=== PATIENT | female | born 1930 | race Caucasian/White ===

== ENCOUNTER 2020-09-23 10:49 | Emergency (ER) | payer MEDICARE ==
[~2020-09-23] VITALS: Ht 162.6 cm; Wt 54.5 kg
[2020-09-23 11:05] VITALS: BP 126/75
--- NOTE | 2020-09-23 11:44 | RAD ---
XR SHOULDER_LEFT 2+ VIEWS, XR CHEST 1V Clinical indications: Reason: Left-sided chest pain over implant and left shoulder pain. PORTABLE AP CHEST X-RAY COMPARISON: None available. Findings: Old granulomatous disease is seen. No acute lung infiltrate or pleural effusion or pulmonar y edema or lung mass or pneumothorax is seen. The heart size, pulmonary vasculature, mediastinum and both trae are unremarkable. IMPRESSION: No acute radiographic abnormality is seen. THREE-VIEW LEFT SHOULDER STUDY: No acute fracture or dislocation or lytic process is seen. Old healed inferior left lateral rib cage fractures are seen. There is mild DJD of the left AC joint. The left glenohumeral joint is unremarkable. There is spurring of the inferior edge of the acromial process wh ich may impinge the acromial humeral space resulting in rotator cuff disease. There are mild chronic erosive changes of the lateral aspect of the humeral head secondary to chronic acromial humeral space impingement. IMPRESSION: No acute fracture. Acromial humeral space impingement which may result in rotator cuff disease. Electronically signed by: Eduar Chan MD (09/23/2020 11:42 AM) [id number]
--- NOTE | 2020-09-23 11:49 | PHYS DOC ---
Past History Past Medical History: Cancer, CVA, Hypertension, Hypothyroid, Other Additional Past Medical Histor: PARKINSONS Past Surgical History: Other Additional Past Surgical Histo: MASCECTOMY LEFT Alcohol Use: None General Adult EDM: Chief Complaint: UPPER EXTREMITY SWELLING HPI: HPI: 89-year-old female past medical history significant for stroke with left-sided weakness and breast cancer status post L mastectomy and augmentation proximately 30 years ago in [place], here visiting family, presents to the ED with complaints of painful/swollen left upper chest, "I think my breast implant ruptured," approximately 2 days ago with associated bruising and left upper chest pain. Is on Eliquis due to her stroke. History of blood transfusions in the past related to her breast cancer. No known exposure to covid. No h/o liver disease, low platelets or bleeding disorders. Denies any falls or hitting her head, cannot recall any trauma or event that would cause bleeding. Review of Systems: Review of Systems: Constitutional: Denies fever or chills Eyes: Denies change in visual acuity HENT: Denies nasal congestion or sore throat Respiratory: Denies cough or shortness of breath Cardiovascular: Denies chest pain or edema GI: Denies abdominal pain, nausea, vomiting, bloody stools or diarrhea : Denies dysuria or hematuria Musculoskeletal: Denies back pain or joint pain Integument: Denies crepitus or diaphoresis Neurologic: Denies headache, midline neck pain, focal weakness or sensory changes Endocrine: Denies polyuria or polydipsia Lymphatic: Denies swollen glands Psychiatric: Denies depression or anxiety Allergies: Allergies: Allergies Coded Allergies Type Severity Reaction Last Updated Verified codeine Allergy Unknown 09/23/20 Yes Physical Exam: PE: Constitutional: Well developed, well nourished, no acute distress, non-toxic appearance. HENT: Normocephalic, atraumatic, Eyes: EOMI, conjunctiva normal, Neck: Normal range of motion, supple, Cardiovascular: S1/2 present, regular rhythm, left surgical scar with underlying implant palpated/soft-superior to implant with with large area 10x8 cm of ecchymosis and firm ttp swelling, ecchymosis extends down patient's posterior left arm w/a yellow appearance, no arm swelling, equal radial pulses, no LUE deficits Lungs & Thorax: Speaking in full sentences, bilateral equal chest rise, no tachypnea or increased work of breathing Abdomen: soft, no tenderness, Skin: Warm, dry, no erythema, no rash. [] Back: No tenderness, no CVA tenderness. [] Extremities: No tenderness, no cyanosis, no edema Neurologic: Alert and oriented X 3, normal motor function, normal sensory function, no focal deficits noted. [] Psychologic: Affect normal, judgement normal, mood normal. [] Nexus C-spine criteria are negative: There is no post midline tenderness, the patient is not intoxicated, there is a normal level of alertness, there are no focal neurologic deficits and there are no distracting injuries. Current Patient Data: Vital Signs: Vital Signs Date Time Temp Pulse Resp B/P (MAP) Pulse Ox O2 Delivery O2 Flow Rate FiO2 09/23/20 11:05 98.2 102 20 126/75 (92) 97 Room Air EKG: EKG: [] Radiology/Procedures: Radiology/Procedures: IMAGING REPORT Signed PATIENT: ERIK MONTENEGRO ACCOUNT: [id number] : 1930 LOCATION: ER AGE: 89 SEX: F EXAM STATUS: REG ER ORD. PHYSICIAN: PREMA CANDELARIO DO REASON: pain over implant? PROCEDURE: SHOULDER 2+V LEFT XR SHOULDER_LEFT 2+ VIEWS, XR CHEST 1V Clinical indications: Reason: Left-sided chest pain over implant and left shoulder pain. PORTABLE AP CHEST X-RAY COMPARISON: None available. Findings: Old granulomatous disease is seen. No acute lung infiltrate or pleural effusion or pulmonary edema or lung mass or pneumothorax is seen. The heart size, pulmonary vasculature, mediastinum and both trae are unremarkable. IMPRESSION: No acute radiographic abnormality is seen. THREE-VIEW LEFT SHOULDER STUDY: No acute fracture or dislocation or lytic process is seen. Old healed inferior left lateral rib cage fractures are seen. There is mild DJD of the left AC joint. The left glenohumeral joint is unremarkable. There is spurring of the inferior edge of the acromial process which may impinge the acromial humeral space resulting in rotator cuff disease. There are mild chronic erosive changes of the lateral aspect of the humeral head secondary to chronic acromial humeral space impingement. IMPRESSION: No acute fracture. Acromial humeral space impingement which may result in rotator cuff disease. Electronically signed by: Sonya Chan MD (09/23/2020 11:42 AM) [id number] DICTATED AND SIGNED BY: SONYA CHAN MD DATE: 09/23/20 1137 CC: NON,STAFF; PREMA CANDELARIO DO ~MTH0 0 IMAGING REPORT Signed PATIENT: ERIK MONTENEGRO ACCOUNT: [id number] : 1930 LOCATION: ER AGE: 89 SEX: F EXAM STATUS: REG ER ORD. PHYSICIAN: PREMA CANDELARIO DO REASON: chest wall hematoma, FALL PROCEDURE: CT HEAD AND CERVICAL SPINE WO CT scan of the head without contrast 09/23/2020 Clinical History: Fall with head injury. Technique: Unenhanced, contiguous, 5 mm axial sections were obtained through the head. One or more of the following individualized dose reduction techniques were utilized for this study: 1. Automated exposure control. 2. Adjustment of the mA and/or kV according to patient size. 3. Use of iterative reconstruction technique. Findings: There is generalized parenchymal atrophy. Areas of decreased attenuation are seen within the periventricular and subcortical white matter of both cerebral hemispheres consistent with areas of small vessel ischemic disease. No acute parenchymal abnormality is seen. No extra-axial fluid collection is noted. No skull fracture is seen. Impression: No acute intracranial abnormality is seen. CT scan of the cervical spine without contrast 09/23/2019 Clinical history: Fall. Neck injury. Technique: Unenhanced, contiguous, 0.625 mm axial sections were obtained through the cervical spine. Axial, coronal and sagittal reconstructed images were obtained. One or more of the following individualized dose reduction techniques were util ized for this study: 1. Automated exposure control. 2. Adjustment of the mA and/or kV according to patient size. 3. Use of iterative reconstruction technique. Findings: Sagittal and coronal reconstructed images demonstrate mild lateral curvature of the cervical spine, convex to the right. Degenerative changes consisting of disc space narrowing, vertebral endplate sclerosis and minimal to mild anterior and posterior vertebral body osteophyte formation are seen involving the C6-7 disc space. No fracture or subluxation of the cervical vertebrae is seen. Degenerative changes are seen involving the uncovertebral and facet joints throughout the cervical disc spaces. Impression: No fracture or subluxation of the cervical vertebra is identified. Electronically signed by: Navin Mchugh MD (09/23/2020 1:38 PM) [id number] DICTATED AND SIGNED BY: NAVIN MCHUGH MD DATE: 09/23/20 132 CC: NON,STAFF; PREMA CANDELARIO DO ~MTH0 0 IMAGING REPORT Signed PATIENT: ERIK MONTENEGRO ACCOUNT: [id number] : 1930 LOCATION: ER AGE: 89 SEX: F EXAM STATUS: REG ER ORD. PHYSICIAN: PREMA CANDELARIO DO REASON: ruptured breast implant?, BRUISING AND HARDNESS PROCEDURE: CT CHEST WO CONTRAST CT scan of the chest without contrast 09/23/2020 CLINICAL HISTORY: Bruising and hardness around the patient's left breast implant. TECHNIQUE: Unenhanced, contiguous, 3 mm axial sections were obtained through the chest and upper abdomen. One or more of the following individualized dose reduction techniques were utilized for this study: 1. Automated exposure control. 2. Adjustment of the mA and/or kV according to patient size. 3. Use of iterative reconstruction technique. FINDINGS: A left breast implant is noted in place. It appears to be intact. A hematoma is seen extending superiorly within the left breast. This is pr edominantly anterior, superior and lateral to the implant. This hematoma measures 10.0 x 9.0 x 6.3 cm in craniocaudal, transverse and AP dimensions. The right breast is small. Benign-appearing calcifications are seen scattered throughout the right breast. Atherosclerotic calcification of the thoracic aorta and its branches is seen. The thoracic aorta is tortuous but tapers normally. Small calcified hilar and mediastinal lymph nodes are seen. The heart is mildly enlarged. Small calcified granulomas are seen scattered throughout both lungs. No area of consolidation is seen. There is a very small left pleural effusion. No pneumothorax is noted. Images through the upper abdomen demonstrate surgical clips within the gallbladder fossa consistent with a cholecystectomy. Atherosclerotic calcification of the abdominal aorta and its branches is seen. Very mild S- shaped curvature of the thoracolumbar spine is seen. Degenerative changes are seen involving the thoracic spine. IMPRESSION: 10 cm hematoma is seen within the superior left breast as discussed above. Electronically signed by: Navin Mchugh MD (09/23/2020 12:41 PM) [id number] DICTATED AND SIGNED BY: NAVIN MCHUGH MD DATE: 09/23/20 1233 CC: NON,STAFF; PREMA CANDELARIO DO ~MTH0 0 Heart Score: Risk Factors: Risk Factors: DM, Current or recent (<one month) smoker, HTN, HLP, family history of CAD, obesity. Risk Scores: Score 0 - 3: 2.5% MACE over next 6 weeks - Discharge Home Score 4 - 6: 20.3% MACE over next 6 weeks - Admit for Clinical Observation Score 7 - 10: 72.7% MACE over next 6 weeks - Early Invasive Strategies Course & Med Decision Making: Course & Med Decision Making Pertinent Labs and Imaging studies reviewed. (See chart for details) Concern for spontaneous left chest wall hematoma in a patient on Eliquis, no known witnessed trauma. I spoke to patient's granddaughter who pt lives with. Pt fell in April and July, moved here in April after her daughter to live with granddaughter who was patient's DPOA in [place]-has not established medical care in [place]. Patient has a history of Parkinson's disease but not dementia, has no forgetfulness. CT imaging c/w large left chest wall hematoma-printed to take to care provider (unsure if moving to [place]). Mild normocytic anemia with a hemoglobin 11.8 with no thrombocytopenia or significant coagulopathy on coag studies. I do not suspect any elder abuse -pt denies this. Will discharge home with strict ED return precautions were given for exertional dyspnea, syncope, worsening bleeding or pain. Encouraged urgent outpatient follow-up with PMD (discuss risk/benefits for eliquis) and [facility] for plastic surgery prn for full evaluation of implant. Life-threatening processes were considered but are low suspicion at this time, given history, physical exam and ED workup. Pt was educated on all prescription medications and adverse effects. All patient's questions were answered and pt was stable at time of discharge. Life/limb-threatening differential includes but is not limited to, intracranial hemorrhage, diffuse axonal injury, spinal cord syndrome, unstable cervical fracture or SCIWORA, fractures or joint dislocations, neurovascular injuries, organ injury or laceration, pneumothorax, pneumoperitoneum, pericardial tamponade, unstable pelvic fracture, compartment syndrome, flail chest or respiratory distress, burn injury or asphyxiation I spoken with the patient and her caregivers. I explained the patient's condition, diagnoses and treatment plan based on the information available to me at this time. I have answered the patient and her caregiver's questions and addressed any concerns. The patient and her caregivers have a good understa nding of patient's diagnosis, condition and treatment plan as can be expected at this point. Vital signs have been stable. Patient's condition is stable and appropriate for discharge from the emergency department. Patient will pursue further outpatient evaluation with primary care physician or other designated or consulting physician as outlined in the discharge instructions. The patient and/or caregivers are agreeable to this plan of care and follow-up instructions have been explained in detail. The patient and/or caregivers have received these instructions in written form and have expressed an understanding of the discharge instructions. The patient and/or caregivers are aware that any significant change of condition or worsening of symptoms should prompt immediate return to this or the closest emergency department or call to 1. Bing Disclaimer: Bing Disclaimer: This electronic medical record was generated, in whole or in part, using a voice recognition dictation system. Departure Departure: Impression: Primary Impression: Hematoma of left chest wall Additional Impression: Normocytic anemia Disposition: 01 DC HOME SELF CARE/HOMELESS Condition: STABLE Referrals: NON,STAFF (PCP) FOLLOW UP WITH FAMILY MEDICINE to repeat hemoglobin Family Medicine Address: [address] [place] [address] Patient Instructions: Anemia, Nonspecific-Brief, Hematoma Additional Instructions: PLEASE REFER TO [facility] FOR PLASTIC SURGERY EVALUATION EMERGENCY DEPARTMENT GENERAL DISCHARGE INSTRUCTIONS Thank you for coming to [facility] (ED) today and trusting us with you care. We trust that you had a positivie experience in our Emergency Department. If you wish to speak to the department management, you may call the director at . YOUR FOLLOW UP INSTRUCTIONS ARE FOLLOWS: 1. Do you have a private Doctor? If you do not have a private doctor, please ask for a resource list of physicians or clinics that may be able to assist you with follow up care. 2. The Emergency Physician has interpreted your x-rays. The X-Ray specialist will also review them. If there is a change in the findings, you will be notified in 48 hours when at all possible. 3. A lab test or culture has been done, your results will be reviewed and you will be notified if you need a change in treatment. ADDITIONAL INSTRUCTIONS AND INFORMATION: 1. Your care today has been supervised by a physician who is specially trained in emergency care. Many problems require more than one evaluation for a complete diagnosis and treatment. We recommend that you schedule your follow up appointment as recommended to ensure complete treatment of you illness or injury. If you are unable to obtain follow up care and continue to have a problem, or if your condition worsens, we recommend that you return to the ED. 2. We are not able to safely determine your condition over the phone nor are we able to give sound medical advice over the phone. For these safety reasons, if you call for medical advice we will ask you to come to the ED for further evaluation. 3. If you have any questions regarding these discharge instructions please call the ED at [phone]. SAFETY INFORMATION: In the interest of safety, wellness, and injury prevention; we encourage you to wear your sealbelt, if you smoke; quite smoking, and we encourage family to use a protective helmet for bicycling and other sporting events that present an increased risk for head injury. IF YOUR SYMPTOMS WORSEN OR NEW SYMPTOMS DEVELOP, OR YOU HAVE CONCERNS ABOUT YOUR CONDITION; OR IF YOUR CONDITION WORSENS WHILE YOU ARE WAITING FOR YOUR FOLLOW UP APPOINTMENT; EITHER CONTACT YOUR PRIMARY CARE DOCTOR, THE PHYSICIAN WHOSE NAME AND NUMBER YOU WERE GIVEN, OR RETURN TO THE ED IMMEDIATELY. PREMA CANDELARIO DO Sep 23, 2020 11:49
[2020-09-23 12:25] LABS: BASO # 0.1 x10^3/uL (0.0-0.2); BASO % 1 % (0-3); EOS # 0.1 x10^3/uL (0.0-0.7); EOS % 1 % (0-3); HEMOGLOBIN 11.8 g/dL (12.0-15.5); LYMPH # 0.5 x10^3/uL (1.0-4.8); LYMPH % 5 % (24-48); MEAN CORPUSCULAR HEMOGLOBIN 31 pg (25-35); MEAN CORPUSCULAR HGB CONC 33 g/dL (31-37); MEAN CORPUSCULAR VOLUME 94 fL (79-100); MONO # 0.7 x10^3/uL (0.0-1.1); MONO % 7 % (0-9); NEUT # 9.4 x10^3uL (1.8-7.7); NEUT % 87 % (31-73); PLATELET COUNT 210 x10^3/uL (140-400); RED BLOOD COUNT 3.83 x10^6/uL (3.50-5.40); RED CELL DISTRIBUTION WIDTH 13.6 % (11.5-14.5); WHITE BLOOD COUNT 10.8 x10^3/uL (4.0-11.0)
[2020-09-23 12:37] LABS: ALBUMIN/GLOBULIN RATIO 0.9 (1.0-1.7); CALCIUM 8.7 mg/dL (8.5-10.1); CREATININE 0.7 mg/dL (0.6-1.0); GFR 78.8; POTASSIUM 3.1 mmol/L (3.5-5.1); TOTAL BILIRUBIN 0.9 mg/dL (0.2-1.0); TOTAL PROTEIN 6.4 g/dL (6.4-8.2)
--- NOTE | 2020-09-23 12:44 | RAD ---
CT scan of the chest without contrast 09/23/2020 CLINICAL HISTORY: Bruising and hardness around the patient's left breast implant. TECHNIQUE: Unenhanced, contiguous, 3 mm axial sections were obtained through the chest and upper abdo men. One or more of the following individualized dose reduction techniques were utilized for this study: 1. Automated exposure control. 2. Adjustment of the mA and/or kV according to patient size. 3. Use of iterative reconstruction technique. FINDINGS: A left breast implant is noted in place. It appears to be intact. A hematoma is seen extend ing superiorly within the left breast. This is predominantly anterior, superior and lateral to the im plant. This hematoma measures 10.0 x 9.0 x 6.3 cm in craniocaudal, transverse and AP dimensions. The right breast is small. Benign-appearing calcifications are seen scattered throughout the right breast . Atherosclerotic calcification of the thoracic aorta and its branches is seen. The thoracic aorta is t ortuous but tapers normally. Small calcified hilar and mediastinal lymph nodes are seen. The heart is mildly enlarged. Small calcified granulomas are seen scattered throughout both lungs. No area of consolidation is seen . There is a very small left pleural effusion. No pneumothorax is noted. Images through the upper abdomen demonstrate surgical clips within the gallbladder fossa consistent w ith a cholecystectomy. Atherosclerotic calcification of the abdominal aorta and its branches is seen. Very mild S-shaped curvature of the thoracolumbar spine is seen. Degenerative changes are seen invol ving the thoracic spine. IMPRESSION: 10 cm hematoma is seen within the superior left breast as discussed above. Electronically signed by: Navin Mchugh MD (09/23/2020 12:41 PM) [id number]
--- NOTE | 2020-09-23 13:40 | RAD ---
CT scan of the head without contrast 09/23/2020 Clinical History: Fall with head injury. Technique: Unenhanced, contiguous, 5 mm axial sections were obtained through the head. One or more of the following individualized dose reduction techniques were utilized for this study: 1. Automated exposure control. 2. Adjustment of the mA and/or kV according to patient size. 3. Use of iterative reconstruction technique. Findings: There is generalized parenchymal atrophy. Areas of decreased attenuation are seen within th e periventricular and subcortical white matter of both cerebral hemispheres consistent with areas of small vessel ischemic disease. No acute parenchymal abnormality is seen. No extra-axial fluid collect ion is noted. No skull fracture is seen. Impression: No acute intracranial abnormality is seen. CT scan of the cervical spine without contrast 09/23/2019 Clinical history: Fall. Neck injury. Technique: Unenhanced, contiguous, 0.625 mm axial sections were obtained through the cervical spine. Axial, coronal and sagittal reconstructed images were obtained. One or more of the following individualized dose reduction techniques were utilized for this study: 1. Automated exposure control. 2. Adjustment of the mA and/or kV according to patient size. 3. Use of iterative reconstruction technique. Findings: Sagittal and coronal reconstructed images demonstrate mild lateral curvature of the cervica l spine, convex to the right. Degenerative changes consisting of disc space narrowing, vertebral endp late sclerosis and minimal to mild anterior and posterior vertebral body osteophyte formation are see n involving the C6-7 disc space. No fracture or subluxation of the cervical vertebrae is seen. Degenerative changes are seen involving the uncovertebral and facet joints throughout the cervical disc spaces. Impression: No fracture or subluxation of the cervical vertebra is identified. Electronically signed by: Navin Mchugh MD (09/23/2020 1:38 PM) [place] [id number]
== END 2020-09-23 14:20 | disposition home or self-care (01) ==
LOC: ER 10:49
DX: S20.212A Contusion of left front wall of thorax, initial encounter (principal); D64.9 Anemia, unspecified; I10 Essential (primary) hypertension; E03.9 Hypothyroidism, unspecified; Z86.73 Personal history of transient ischemic attack (TIA), and cerebral infarction without residual deficits; Z90.12 Acquired absence of left breast and nipple; Z88.5 Allergy status to narcotic agent; X58.XXXA Exposure to other specified factors, initial encounter; Y93.89 Activity, other specified; Y92.89 Other specified places as the place of occurrence of the external cause; Y99.8 Other external cause status
CPT/HCPCS: 36415; 70450; 71045; 71250; 72125; 73030; 80053; 85025; 85610; 85730; 99285-25

== ENCOUNTER 2020-11-14 18:33 | Emergency (ER) | payer MEDICARE ==
[~2020-11-14] VITALS: Ht 160 cm; Wt 52.2 kg
--- NOTE | 2020-11-14 20:19 | PHYS DOC ---
Past History Past Medical History: High Cholesterol, Hypertension, Hypothyroid, Stroke, Other Additional Past Medical Histor: BREAST CANCER, COLON CANCER (BUNNY MOMIN APRN) Past Surgical History: Cancer Surgery, Cholecystectomy, Hysterectomy, Knee Replacement, Other Additional Past Surgical Histo: LEFT MASTECTOMY, COLON SURGERY (BUNNY MOMIN APRN) Alcohol Use: None (BUNNY MOMIN APRN) General Adult EDM: Chief Complaint: SHORTNESS OF BREATH HPI: HPI: Patient is a 89-year-old female who presents with nonproductive cough, shortness of breath with exertion and tested positive for Covid 4 days ago. Granddaughter states that she is being kept up all night due to her coughing. States "I am not sure if she has been running a fever or not, our thermometer has been reading incorrectly". She has been giving her [place] at home for symptoms. Patient has a history of Parkinson's, stroke, stage IV breast cancer. (BUNNY MOMIN APRN) Review of Systems: Review of Systems: Constitutional: Denies fever or chills Eyes: Denies change in visual acuity HENT: Denies nasal congestion or sore throat Respiratory: Reports cough, shortness of breath with exertion Cardiovascular: Denies chest pain or edema GI: Denies abdominal pain, nausea, vomiting, bloody stools or diarrhea : Denies dysuria Musculoskeletal: Denies back pain or joint pain Integument: Denies rash Neurologic: Denies headache, focal weakness or sensory changes Endocrine: Denies polyuria or polydipsia Lymphatic: Denies swollen glands Psychiatric: Denies depression or anxiety (BUNNY MOMIN APRN) Allergies: Allergies: Allergies Coded Allergies Type Severity Reaction Last Updated Verified codeine Allergy Unknown 09/23/20 Yes (BUNNY MOMIN APRN) Physical Exam: PE: Constitutional: Well developed, well nourished, no acute distress, non-toxic appearance. [] HENT: Normocephalic, atraumatic, bilateral external ears normal, oropharynx moist, no oral exudates, nose normal. [] Eyes: PERRLA, EOMI, conjunctiva normal, no discharge. [] Neck: Normal range of motion, no tenderness, supple, no stridor. [] Cardiovascular:Heart rate regular rhythm, no murmur [] Lungs & Thorax: Bilateral breath sounds clear to auscultation [] Abdomen: Bowel sounds normal, soft, no tenderness, no masses, no pulsatile masses. [] Skin: Warm, dry, no erythema, no rash. [] Back: No tenderness, no CVA tenderness. [] Extremities: No tenderness, no cyanosis, no clubbing, ROM intact, no edema. [] Neurologic: Alert and oriented X 3, normal motor function, normal sensory function, no focal deficits noted. [] Psychologic: Affect normal, judgement normal, mood normal. [] (BUNNY MOMIN APRN) Current Patient Data: Vital Signs: Vital Signs Date Time Temp Pulse Resp B/P (MAP) Pulse Ox O2 Delivery O2 Flow Rate FiO2 11/14/20 19:08 101.3 85 21 140/65 (90) 94 Room Air (BUNNY MOMIN APRN) EKG: EKG: [] (BUNNY MOMIN APRN) Radiology/Procedures: Radiology/Procedures: []INDICATION: Reason: SOB, COVID+ / Spl. Instructions: / History: COMPARISON: September 23, 2020 FINDINGS: Single view of chest obtained. Hypoexpanded exam. Mild hazy opacity at the left lung base. Elevated right hemidiaphragm. Calcified lung nodules and calcified lymph nodes in the mediastinum which can be from chronic granulomatous disease. Surgical clips right upper quadrant the abdomen. Air-filled prominent loops of bowel in the upper abdomen partially seen IMPRESSION: * Hazy opacity left lower lung could be secondary to atelectasis or infiltrate. * Elevated right hemidiaphragm. * Air-filled prominence of some of the loops of bowel the partially visualized upper abdomen. Electronically signed by: Von Astorga MD (11/14/2020 8:50 PM) [id number] (BUNNY MOMIN APRN) Heart Score: Risk Factors: Risk Factors: DM, Current or recent (<one month) smoker, HTN, HLP, family history of CAD, obesity. Risk Scores: Score 0 - 3: 2.5% MACE over next 6 weeks - Discharge Home Score 4 - 6: 20.3% MACE over next 6 weeks - Admit for Clinical Observation Score 7 - 10: 72.7% MACE over next 6 weeks - Early Invasive Strategies (BUNNY MOMIN APRN) Course & Med Decision Making: Course & Med Decision Making Pertinent Labs and Imaging studies reviewed. (See chart for details) []Patient is a 89-year-old female who presents with nonproductive cough, shortness of breath with exertion and tested positive for Covid 4 days ago. Granddaughter states that she is being kept up all night due to her coughing. States "I am not sure if she has been running a fever or not, our thermometer has been reading incorrectly". She has been giving her [place] at home for symptoms. Patient has a history of Parkinson's, stroke, stage IV breast cancer. Chest x-ray ordered.Hazy opacity left lower lung could be secondary to atelectasis or infiltrate. (BUNNY MOMIN APRN) Course & Med Decision Making Did not see or evaluate patient. Agree with ERP MANAGER's work-up and disposition per note. (CHUCK MENDOZA MD) Dragon Disclaimer: Dragon Disclaimer: This electronic medical record was generated, in whole or in part, using a voice recognition dictation system. (BUNNY MOMIN APRN) Departure Departure: Impression: Primary Impression: Pneumonia Qualified Codes: J18.9 - Pneumonia, unspecified organism Disposition: 01 DC HOME SELF CARE/HOMELESS Condition: STABLE Referrals: YOLA FELIX MD (PCP) Patient Instructions: Pneumonia, Adult, [id number] Additional Instructions: EMERGENCY DEPARTMENT GENERAL DISCHARGE INSTRUCTIONS Thank you for coming to [facility] (ED) today and trusting us with you care. We trust that you had a positivie experience in our Emergency Department. If you wish to speak to the department management, you may call the director at [phone]. YOUR FOLLOW UP INSTRUCTIONS ARE FOLLOWS: 1. Do you have a private Doctor? If you do not have a private doctor, please ask for a resource list of physicians or clinics that may be able to assist you with follow up care. 2. The Emergency Physician has interpreted your x-rays. The X-Ray specialist will also review them. If there is a change in the findings, you will be notified in 48 hours when at all possible. 3. A lab test or culture has been done, your results will be reviewed and you will be notified if you need a change in treatment. ADDITIONAL INSTRUCTIONS AND INFORMATION: 1. Your care today has been supervised by a physician who is specially trained in emergency care. Many problems require more than one evaluation for a complete diagnosis and treatment. We recommend that you schedule your follow up appointment as recommended to ensure complete treatment of you illness or injury. If you are unable to obtain follow up care and continue to have a problem, or if your condition worsens, we recommend that you return to the ED. 2. We are not able to safely determine your condition over the phone nor are we able to give sound medical advice over the phone. For these safety reasons, if you call for medical advice we will ask you to come to the ED for further evaluation. 3. If you have any questions regarding these discharge instructions please call the ED at [phone]. SAFETY INFORMATION: In the interest of safety, wellness, and injury prevention; we encourage you to wear your sealbelt, if you smoke; quite smoking, and we encourage family to use a protective helmet for bicycling and other sporting events that present an increased risk for head injury. IF YOUR SYMPTOMS WORSEN OR NEW SYMPTOMS DEVELOP, OR YOU HAVE CONCERNS ABOUT YOUR CONDITION; OR IF YOUR CONDITION WORSENS WHILE YOU ARE WAITING FOR YOUR FOLLOW UP APPOINTMENT; EITHER CONTACT YOUR PRIMARY CARE DOCTOR, THE PHYSICIAN WHOSE NAME AND NUMBER YOU WERE GIVEN, OR RETURN TO THE ED IMMEDIATELY. Scripts Levofloxacin (LEVOFLOXACIN) 500 Mg Tablet 500 MG PO BID for pneumonia for 7 Days, #14 TAB Prov: BUNNY MOMIN APRN 11/14/20 BUNNY MOMIN APRN Nov 14, 2020 20:19 CHUCK MENDOZA MD Nov 15, 2020 01:59
--- NOTE | 2020-11-14 20:52 | RAD ---
INDICATION: Reason: SOB, COVID+ / Spl. Instructions: / History: COMPARISON: September 23, 2020 FINDINGS: Single view of chest obtained. Hypoexpanded exam. Mild hazy opacity at the left lung base. Elevated right hemidiaphragm. Calcified l lior nodules and calcified lymph nodes in the mediastinum which can be from chronic granulomatous dise ase. Surgical clips right upper quadrant the abdomen. Air-filled prominent loops of bowel in the uppe r abdomen partially seen IMPRESSION: * Hazy opacity left lower lung could be secondary to atelectasis or infiltrate. * Elevated right hemidiaphragm. * Air-filled prominence of some of the loops of bowel the partially visualized upper abdomen. Electronically signed by: Von Astorga MD (11/14/2020 8:50 PM) [id number]
[2020-11-14 21:53] VITALS: BP 155/85
[2020-11-14] MEDS ORDERED: LEVO500T8 PO (22:05)
--- NOTE | 2020-11-14 22:15 | EKG ---
[address] [address] Test Date: 2020-11-14 Test Time: 19:29:33 Pat Name: ERIK MONTENEGRO Department: Room: Gender: F Sample Driller: : 1930 Requested By: CHUCK MENDOZA Order Number: [id number] Reading MD: Measurements Intervals [place] Rate: 103 P: [place]: QRS: -31 QRSD: 96 T: 84 QT: 346 QTc: 455 Interpretive Statements IRREGULAR RHYTHM, NO P-WAVE FOUND ABNORMAL LEFT AXIS DEVIATION CONSIDER LEFT VENTRICULAR HYPERTROPHY QRS(T) CONTOUR ABNORMALITY CONSISTENT WITH ANTERIOR INFARCT PROBABLY OLD CONSISTENT WITH INFERIOR INFARCT PROBABLY OLD ST & T ABNORMALITY, CONSIDER HIGH LATERAL ISCHEMIA OR LEFT VENTRICULAR STRAIN ABNORMAL ECG No previous ECG available for comparison
[2020-11-14] MEDS ORDERED: levoFLOXacin 500 MG TABLET PO ONE (22:30)
[2020-11-14 22:43] LABS: CREATININE 0.6 mg/dL (0.6-1.0); GFR 94.1; POTASSIUM 3.7 mmol/L (3.5-5.1)
== END 2020-11-14 22:46 | disposition home or self-care (01) ==
LOC: ER 18:33
DX: J18.9 Pneumonia, unspecified organism (principal); R05 Cough; R06.02 Shortness of breath; E78.00 Pure hypercholesterolemia, unspecified; I10 Essential (primary) hypertension; E03.9 Hypothyroidism, unspecified; I25.2 Old myocardial infarction; Z85.3 Personal history of malignant neoplasm of breast; Z90.49 Acquired absence of other specified parts of digestive tract; Z90.710 Acquired absence of both cervix and uterus; Z90.89 Acquired absence of other organs; Z98.890 Other specified postprocedural states; Z88.5 Allergy status to narcotic agent
CPT/HCPCS: 36415; 71045; 80048; 93005; 99285

== ENCOUNTER 2020-11-23 14:46 | Emergency (ER) | payer MEDICARE ==
[~2020-11-23] VITALS: Ht 160 cm; Wt 52.2 kg
[~2020-11-23 14:46] MED LIST: LEVO500T8 PO
[2020-11-23 14:47] VITALS: BP 128/64
[2020-11-23] MEDS ORDERED: IV NORMAL SALINE 1,000ML 1,000 ML IV SCH (15:00)
--- NOTE | 2020-11-23 15:26 | EKG ---
[facility] ED [facility] [address] [place] [address] Test Date: 2020-11-23 Test Time: 15:02:21 Pat Name: ERIK MONTENEGRO Department: Room: Gender: F Coil Placer: : 1930 Requested By: PREMA CANDELARIO Order Number: [id number] Reading MD: Measurements Intervals [place] Rate: 91 P: 90 [place]: 176 QRS: -26 QRSD: 94 T: 83 QT: 378 QTc: 467 Interpretive Statements SINUS RHYTHM LEFTWARD AXIS QRS(T) CONTOUR ABNORMALITY CONSISTENT WITH ANTERIOR INFARCT PROBABLY OLD CONSISTENT WITH INFERIOR INFARCT PROBABLY OLD ST & T ABNORMALITY, CONSIDER HIGH LATERAL ISCHEMIA OR LEFT VENTRICULAR STRAIN ABNORMAL ECG RI6.02 No previous ECG available for comparison
[2020-11-23 15:40] LABS: CALCIUM 9.4 mg/dL (8.5-10.1); CREATININE 1.1 mg/dL (0.6-1.0); GFR 46.8; POTASSIUM 4.4 mmol/L (3.5-5.1)
--- NOTE | 2020-11-23 15:46 | RAD ---
AP chest. HISTORY: Dehydration, weakness, Covid-19 AP view was taken of the chest. Heart is normal in size. There is no effusion. There are no confluent areas of infiltrate. The pattern is similar to the recent study from November 14. There is mild elev ation the of right diaphragm IMPRESSION: 1. No change from the recent study. 2. No new infiltrates. Electronically signed by: Christopher Clemente MD (11/23/2020 3:44 PM) [id number]
[2020-11-23 15:52] LABS: ALBUMIN 3.3 g/dL (3.4-5.0); ALBUMIN/GLOBULIN RATIO 0.9 (1.0-1.7); TOTAL BILIRUBIN 0.5 mg/dL (0.2-1.0); TOTAL PROTEIN 7.1 g/dL (6.4-8.2)
[2020-11-23 15:54] LABS: BASO # 0.1 x10^3/uL (0.0-0.2); BASO % 1 % (0-3); EOS # 0.1 x10^3/uL (0.0-0.7); EOS % 1 % (0-3); HEMATOCRIT 41.8 % (36.0-47.0); HEMOGLOBIN 13.7 g/dL (12.0-15.5); LYMPH # 0.8 x10^3/uL (1.0-4.8); LYMPH % 9 % (24-48); MEAN CORPUSCULAR HEMOGLOBIN 31 pg (25-35); MEAN CORPUSCULAR HGB CONC 33 g/dL (31-37); MEAN CORPUSCULAR VOLUME 95 fL (79-100); MONO # 0.7 x10^3/uL (0.0-1.1); MONO % 8 % (0-9); NEUT # 7.8 x10^3uL (1.8-7.7); NEUT % 82 % (31-73); PLATELET COUNT 233 x10^3/uL (140-400); RED BLOOD COUNT 4.39 x10^6/uL (3.50-5.40); RED CELL DISTRIBUTION WIDTH 14.2 % (11.5-14.5); WHITE BLOOD COUNT 9.5 x10^3/uL (4.0-11.0)
--- NOTE | 2020-11-23 16:13 | PHYS DOC ---
Past History Past Medical History: High Cholesterol, Hypertension, Hypothyroid, Pneumonia, Stroke, Other Additional Past Medical Histor: BREAST CANCER, COLON CANCER, COVID Past Surgical History: Cancer Surgery, Cholecystectomy, Hysterectomy, Knee Replacement, Other Additional Past Surgical Histo: LEFT MASTECTOMY, COLON SURGERY Alcohol Use: None General Adult EDM: Chief Complaint: DEHYDRATION HPI: HPI: 89-year-old female parkinsons dementia, HTN, HLD, CVA w/L sided weakness, Hypothyroid, and breast ca (s/p L mastectomy, inremission) presents to the ED, family concerned patient is dehydrated and is not eating or drinking very much. In ED patient unsure why she is here but reports of sore throat for the past 2 days. When asked when her sore throat started and if it was when she was diagnosed with Covid, she states, "I had covid?" I saw pt a few months ago. Lives in [place] and is here visiting family. Tested positive for covid 11/10/20 and treated for pneumonia on November 14. Hx and ROS limited 2/2 dementia. Review of Systems: Review of Systems: Unobtainable due to dementia Current Medications: Current Meds: Current Medications Medications (Trade) Dose Ordered Sig/Renee Start Time Stop Time Status Last Admin Dose Admin Sodium Chloride 1,000 ml @ 1,000 mls/hr Q1H 11/23/20 15:00 11/23/20 15:59 DC 11/23/20 15:24 1,000 MLS/HR Allergies: Allergies: Allergies Coded Allergies Type Severity Reaction Last Updated Verified codeine Allergy Unknown 09/23/20 Yes Physical Exam: PE: Constitutional: Well developed, well nourished, no acute distress, non-toxic appearance. HENT: Normocephalic, atraumatic, very dry mucous membranes, no pharyngeal erythema or exudates, no palatal petechiae, uvula midline, Eyes: EOMI, conjunctiva normal, no discharge. Neck: Normal range of motion, supple, Cardiovascular: S1/2 present, regular rhythm Lungs & Thorax: Speaking in full sentences, bilateral equal chest rise, no tachypnea or increased work of breathing Abdomen: soft, no tenderness, Skin: Warm, dry, no erythema, no rash. [] Extremities: No tenderness, no cyanosis, Neurologic: Alert and oriented X 3, normal motor function, normal sensory function, no focal deficits noted. [] Psychologic: Affect normal, judgement normal, mood normal. [] Current Patient Data: Labs: Laboratory Tests Test 11/23/20 15:15 White Blood Count 9.5 x10^3/uL (4.0-11.0) Red Blood Count 4.39 x10^6/uL (3.50-5.40) Hemoglobin 13.7 g/dL (12.0-15.5) Hematocrit 41.8 % (36.0-47.0) Mean Corpuscular Volume 95 fL (79-100) Mean Corpuscular Hemoglobin 31 pg (25-35) Mean Corpuscular Hemoglobin Concent 33 g/dL (31-37) Red Cell Distribution Width 14.2 % (11.5-14.5) Platelet Count 233 x10^3/uL (140-400) Neutrophils (%) (Auto) 82 % (31-73) H Lymphocytes (%) (Auto) 9 % (24-48) L Monocytes (%) (Auto) 8 % (0-9) Eosinophils (%) (Auto) 1 % (0-3) Basophils (%) (Auto) 1 % (0-3) Neutrophils # (Auto) 7.8 x10^3uL (1.8-7.7) H Lymphocytes # (Auto) 0.8 x10^3/uL (1.0-4.8) L Monocytes # (Auto) 0.7 x10^3/uL (0.0-1.1) Eosinophils # (Auto) 0.1 x10^3/uL (0.0-0.7) Basophils # (Auto) 0.1 x10^3/uL (0.0-0.2) Sodium Level 144 mmol/L (136-145) Potassium Level 4.4 mmol/L (3.5-5.1) Chloride Level 105 mmol/L (98-107) Carbon Dioxide Level 28 mmol/L (21-32) Anion Gap 11 (6-14) Blood Urea Nitrogen 30 mg/dL (7-20) H Creatinine 1.1 mg/dL (0.6-1.0) H Estimated GFR (Cockcroft-Gault) 46.8 BUN/Creatinine Ratio 27 (6-20) H Glucose Level 101 mg/dL (70-99) H Calcium Level 9.4 mg/dL (8.5-10.1) Total Bilirubin 0.5 mg/dL (0.2-1.0) Aspartate Amino Transferase (AST) 21 U/L (15-37) Alanine Aminotransferase (ALT) 20 U/L (14-59) Alkaline Phosphatase 56 U/L (46-116) Troponin I Quantitative 0.034 ng/mL (0-0.055) SG-Tip-H-Type Natriuretic Peptide 1481 pg/mL (0-449) H Total Protein 7.1 g/dL (6.4-8.2) Albumin 3.3 g/dL (3.4-5.0) L Albumin/Globulin Ratio 0.9 (1.0-1.7) L Vital Signs: Vital Signs Date Time Temp Pulse Resp B/P (MAP) Pulse Ox O2 Delivery O2 Flow Rate FiO2 11/23/20 14:47 98.4 88 24 128/64 (85) 95 Room Air EKG: EKG: Sinus rhythm 91 bpm, left axis deviation, QTC 467, concave ST segments in 1 and aVL, Q-wave lead III, no ST elevations or ST depressions Radiology/Procedures: Radiology/Procedures: IMAGING REPORT Signed PATIENT: ERIK MONTENEGRO ACCOUNT: [id number] : 1930 LOCATION: ER AGE: 89 SEX: F EXAM STATUS: REG ER ORD. PHYSICIAN: PREMA CANDELARIO DO REASON: Dehydration, Covid, weakness PROCEDURE: CHEST AP ONLY AP chest. HISTORY: Dehydration, weakness, Covid-19 AP view was taken of the chest. Heart is normal in size. There is no effusion. There are no confluent areas of infiltrate. The pattern is similar to the recent study from November 14. There is mild elevation the of right diaphragm IMPRESSION: 1. No change from the recent study. 2. No new infiltrates. Electronically signed by: Christopher Clemente MD (11/23/2020 3:44 PM) [id number] DICTATED AND SIGNED BY: CHRISTOPHER CLEMENTE MD DATE: 11/23/20 1543 CC: YOLA FELIX MD; PREMA CANDELARIO DO ~MTH0 0 Heart Score: C/O Chest Pain: No Risk Factors: Risk Factors: DM, Current or recent (<one month) smoker, HTN, HLP, family history of CAD, obesity. Risk Scores: Score 0 - 3: 2.5% MACE over next 6 weeks - Discharge Home Score 4 - 6: 20.3% MACE over next 6 weeks - Admit for Clinical Observation Score 7 - 10: 72.7% MACE over next 6 weeks - Early Invasive Strategies Course & Med Decision Making: Course & Med Decision Making Pertinent Labs and Imaging studies reviewed. (See chart for details) Pt well appearing but does appear dehydrated via mucous membranes. Normal oral exam, rapid strep negative. Was given a bolus of fluids in the ED. Patient is hemodynamically stable and in no distress, requires no oxygen. Encouraged water/food intake. Mild RICHAR on labs. Will discharge home with strict ED return precautions were given for fever, confusion, chest pain, dyspnea or neurologic deficits. Encouraged urgent outpatient follow-up with PMD (to repeat renal function) and nephrology as needed. Life-threatening processes were considered but are low suspicion at this time, given history, physical exam and ED workup. Pt was educated on all prescription medications and adverse effects. All patient's questions were answered and pt was stable at time of discharge. Life/limb-threatening differential includes but is not limited to, shayne's angina, peritonsillar abscess, retropharyngeal abscess, epiglottitis, bacterial tracheitis, uvulitis, sepsis, mastoiditis, traumatic injury, carotid/vertebral dissection, intracranial aneurysms or neurologic process. I spoken with the patient and her caregivers. I explained the patient's condition, diagnoses and treatment plan based on the information available to me at this time. I have answered the patient and her caregiver's questions and addressed any concerns. The patient and her caregivers have a good u nderstanding of patient's diagnosis, condition and treatment plan as can be expected at this point. Vital signs have been stable. Patient's condition is stable and appropriate for discharge from the emergency department. Patient will pursue further outpatient evaluation with primary care physician or other designated or consulting physician as outlined in the discharge instruct ions. The patient and/or caregivers are agreeable to this plan of care and follow-up instructions have been explained in detail. The patient and/or caregivers have received these instructions in written form and have expressed an understanding of the discharge instructions. The patient and/or caregivers are aware that any significant change of condition or worsening of symptoms should prompt immediate return to this or the closest emergency department or call to 911. Bing Disclaimer: Bing Disclaimer: This electronic medical record was generated, in whole or in part, using a voice recognition dictation system. Departure Departure: Impression: Primary Impression: Dehydration Additional Impressions: RICHAR (acute kidney injury) Insufficient intake of food and water Disposition: 01 DC HOME SELF CARE/HOMELESS Condition: STABLE Referrals: YOLA FELIX MD (PCP) in 2-3 days to repeat renal function tests Patient Instructions: Acute Kidney Injury, Dehydration, Elderly Additional Instructions: [facility] Address: [address] [place] [id number] EMERGENCY DEPARTMENT GENERAL DISCHARGE INSTRUCTIONS Thank you for coming to [facility] (ED) today and trusting us with you care. We trust that you had a positivie experience in our Emergency Department. If you wish to speak to the department management, you may call the director at [phone]. YOUR FOLLOW UP INSTRUCTIONS ARE FOLLOWS: 1. Do you have a private Doctor? If you do not have a private doctor, please ask for a resource list of physicians or clinics that may be able to assist you with follow up care. 2. The Emergency Physician has interpreted your x-rays. The X-Ray specialist will also review them. If there is a change in the findings, you will be notified in 48 hours when at all possible. 3. A lab test or culture has been done, your results will be reviewed and you will be notified if you need a change in treatment. ADDITIONAL INSTRUCTIONS AND INFORMATION: 1. Your care today has been supervised by a physician who is specially trained in emergency care. Many problems require more than one evaluation for a complete diagnosis and treatment. We recommend that you schedule your follow up appointment as recommended to ensure complete treatment of you illness or injury. If you are unable to obtain follow up care and continue to have a problem, or if your condition worsens, we recommend that you return to the ED. 2. We are not able to safely determine your condition over the phone nor are we able to give sound medical advice over the phone. For these safety reasons, if you call for medical advice we will ask you to come to the ED for further evaluation. 3. If you have any questions regarding these discharge instructions please call the ED at [phone]. SAFETY INFORMATION: In the interest of safety, wellness, and injury prevention; we encourage you to wear your sealbelt, if you smoke; quite smoking, and we encourage family to use a protective helmet for bicycling and other sporting events that present an increased risk for head injury. IF YOUR SYMPTOMS WORSEN OR NEW SYMPTOMS DEVELOP, OR YOU HAVE CONCERNS ABOUT YOUR CONDITION; OR IF YOUR CONDITION WORSENS WHILE YOU ARE WAITING FOR YOUR FOLLOW UP APPOINTMENT; EITHER CONTACT YOUR PRIMARY CARE DOCTOR, THE PHYSICIAN WHOSE NAME AND NUMBER YOU WERE Neel MCKEON, OR RETURN TO THE ED IMMEDIATELY. PREMA MASON DO Nov 23, 2020 16:13
== END 2020-11-23 18:00 | disposition home or self-care (01) ==
LOC: ER 14:46
DX: E86.0 Dehydration (principal); J02.9 Acute pharyngitis, unspecified; N17.9 Acute kidney failure, unspecified; I10 Essential (primary) hypertension; E78.00 Pure hypercholesterolemia, unspecified; E03.9 Hypothyroidism, unspecified; I25.2 Old myocardial infarction; Z90.49 Acquired absence of other specified parts of digestive tract; Z90.710 Acquired absence of both cervix and uterus; Z98.890 Other specified postprocedural states; Z85.3 Personal history of malignant neoplasm of breast; Z88.5 Allergy status to narcotic agent
CPT/HCPCS: 36415; 71045; 80053; 83880; 84484; 85025; 87070; 87880; 93005; 96360; 99285; J7030